=== PATIENT | female | born 1960 | race American Indian/Alaskan Native ===

== ENCOUNTER 2018-04-08 14:00 | Observation (INO) | payer BC ==
[2018-04-08] MEDS ORDERED: Glucagon Recombinant 1 mg Inj IV STA (14:32)
[2018-04-08 14:35] LABS: BASO # 0.1 K/uL (0.0-0.2); BASO % 1.2 % (0.0-2.0); EOS # 0.1 K/uL (0.0-0.7); EOS % 1.4 % (0.0-4.0); HEMOGLOBIN 13.3 g/dL (11.0-16.0); LYMPH # 3.6 K/uL (1.0-4.3); LYMPH % 51.4 % (20.0-40.0); MEAN CELL VOLUME 90.1 fL (81.0-99.0); MEAN CORPUSCULAR HEMOGLOBIN 30.7 pg (27.0-31.0); MEAN CORPUSCULAR HGB CONC 34.1 g/dL (33.0-37.0); MEAN PLATELET VOLUME 7.5 fL (7.2-11.7); MONO # 0.5 K/uL (0.0-0.8); MONO % 7.3 % (0.0-10.0); NEUT # 2.7 K/uL (1.8-7.0); NEUT % 38.7 % (50.0-75.0); RBC 4.33 Mil/uL (3.80-5.20); RED CELL DISTRIBUTION WIDTH 14.8 % (11.5-14.5); WHITE BLOOD COUNT 6.9 K/uL (4.8-10.8)
[2018-04-08 14:44] LABS: PROTHROMBIN TIME 11.4 SECONDS (9.7-12.2)
[2018-04-08 14:52] LABS: ALB/GLOB RATIO 1.2 (1.0-2.1); ALBUMIN 4.4 g/dL (3.5-5.0); GFR AFRICAN-AMERICAN > 60; GFR NON-AFRICAN AMERICAN 57
[2018-04-08 14:59] LABS: AST/SGOT 34 U/L (14-36); BLOOD UREA NITROGEN 10 mg/dL (7-17)
[2018-04-08] MEDS ORDERED: Glucagon Recombinant 1 mg Inj ONE (15:04)
[2018-04-08 15:10] LABS: ALT/SGPT 20 U/L (9-52)
--- NOTE | 2018-04-08 16:41 | C.PDOC ---
History Of Present Illness Pt was eating ribs when a big piece of meat (not bone) "got stuck and would not go down". 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) Current Symptoms Are (Timing): Still Present Context: Food (Ribs) Severity: Moderate Location Of Pain/Discomfort: Other (Lower neck/upper chest area) Quality Of Discomfort: Other (Food stuck) Alleviating Factors: None Additional History Per: Prior Records Past Medical History Reviewed: Historical Data, Nursing Documentation, Vital Signs Vital Signs: Last Vital Signs Temp 98.6 F 04/08/18 14:08 Pulse 76 04/08/18 15:19 Resp 12 04/08/18 15:19 BP 182/100 H 04/08/18 15:19 Pulse Ox 100 04/08/18 15:19 - Medical History PMH: HTN, Hyperlipidemia Family History: States: Unknown Family Hx - Social History Hx Tobacco Use: Yes Hx Alcohol Use: Yes Hx Substance Use: No - Immunization History Hx Tetanus Toxoid Vaccination: No Hx Influenza Vaccination: Yes Hx Pneumococcal Vaccination: No Review Of Systems Except As Marked, All Systems Reviewed And Found Negative. Constitutional: Negative for: Fever, Weakness Respiratory: Negative for: Shortness of Breath Gastrointestinal: Positive for: Other (Not tolerating PO). Negative for: Abdominal Pain Skin: Negative for: Rash Neurological: Negative for: Weakness, Numbness Physical Exam - Physical Exam Appears: Non-toxic, No Acute Distress Skin: Normal Color, Warm, Dry Head: Atraumatic, Normacephalic Eye(s): bilateral: PERRL, EOMI Oral Mucosa: Moist, No Trismus Tongue: Normal Appearing Throat: Normal Neck: Normal ROM, Supple Cardiovascular: Rhythm Regular Respiratory: Normal Breath Sounds, No Accessory Muscle Use, No Stridor, No Wheezing Gastrointestinal/Abdominal: Soft, No Tenderness Extremity: Normal ROM Neurological/Psych: Oriented x3, Normal Speech, Normal Motor, Normal Sensation ED Course And Treatment - Laboratory Results Result Diagrams: 04/08/18 14:31 04/08/18 14:31 Lab Interpretation: No Acute Changes O2 Sat by Pulse Oximetry: 100 Pulse Ox Interpretation: Normal Progress Note: Pt still not tolerating PO after drinking Diet Gingerale and receiving IV Reglan and Glucagon. Reassessment Condition: Unchanged - Physician Consult Information Physician Contacted: Raad Chao Outcome Of Conversation: She sent GI fellow to evaluate pt in the ED. They will take pt up to Endoscopy for further evaluation and treatment. Progress - Interventions Interventions:: Observation - Medications Administered Intravenous: Antiemetic, H-2 ashley, Other (Glucagon) - Data Reviewed Data Reviewed: Lab, Old records - Patient Status Patient status: Unchanged - Continuity of Care Discussed patient case with:: Patient, Family-HIPPA compliant, ED Nurse, On- call PMD-pt unassigned Discussed pt. case with event management consultant/specialty: Gastroenterology - Patient Plan Patient Plan: Other (To Endoscopy) Disposition Discussed With DrEverett: Larry King Comment: He accepted pt on his service. Doctor Will See Patient In The: Hospital - Disposition Disposition: HOSPITALIZED Disposition Time: 16:46 Condition: GUARDED - Clinical Impression Clinical Impression: Esophageal obstruction due to food impaction
[2018-04-08] MEDS ORDERED: Propofol 10 mg/ml Inj (20 ML) ONE (16:55)
--- NOTE | 2018-04-08 16:56 | CP.PCM.CON ---
<RadhaKit - Last Filed: 04/08/18 17:11> History of Present Illness - History of Present Illness History of Present Illness: GI Fellow PGY4, Consult note. Consulted for food bolus. Brittany Rodríguez is a very pleasant 57yrs young AAF with history of TIA on Plavix , HTN, smoking presenting with food bolus impaction. 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 She tried to induce vomiting several times. She is unable to belch. She denies bleeding, chest pain, back pain, abdominal pain. She feel more bloated than usual. She is freely able to breath without difficulty, but unable to swallow her secretions. This is not the first time she has had anything stuck in her throat. Pills and food have been getting caught in her throat for the last two years, progressively worsening. She can drink liquids without problem. She has been able to relieve her symptoms with vomiting and swallowing water in the past. She denies weight loss, fevers, history of cancer. PMHx - see above PSHx - Total Hysterectomy for fibroids/bleeding. EGD ~3 years ago, unknown indication and unknown findings. 1st colonoscopy at 49 and polyps founds , follow up Colonoscopy normal ~2 years ago. FMHx - Denies hx of colon, gastric, esophageal cancer. No history of liver diseases. No fmhx of thyroid issues. SocHx - ~20 pack-yr smoker, occasional etoh. 12pt ROS negative except for above. Past Patient History - Past Social History Smoking Status: Heavy Smoker > 10 Cigarettes Daily - CARDIAC Hx Hypertension: Yes - PSYCHIATRIC Hx Substance Use: No - SURGICAL HISTORY Hx Hysterectomy: Yes - ANESTHESIA Hx Anesthesia: Yes Hx Anesthesia Reactions: No Meds Allergies/Adverse Reactions: Allergies Allergy/AdvReac Type Severity Reaction Status Date / Time No Known Allergies Allergy Verified 04/08/18 14:10 Physical Exam - Constitutional Appears: Non-toxic, No Acute Distress - Head Exam Head Exam: ATRAUMATIC, NORMAL INSPECTION, NORMOCEPHALIC - Eye Exam Eye Exam: EOMI, Normal appearance - ENT Exam ENT Exam: Mucous Membranes Moist Additional comments: Spitting up large amounts of saliva into bag. - Neck Exam Additional comments: Large neck, unable to palpate thyroid due to discomfort. - Respiratory Exam Respiratory Exam: Clear to Auscultation Bilateral, NORMAL BREATHING PATTERN. absent: Wheezes, Stridor - Cardiovascular Exam Cardiovascular Exam: REGULAR RHYTHM, +S1, +S2 - GI/Abdominal Exam GI & Abdominal Exam: Normal Bowel Sounds, Soft. absent: Organomegaly, Tenderness - Extremities Exam Extremities exam: Positive for: normal inspection - Neurological Exam Neurological exam: Alert, CN II-XII Intact, Oriented x3 - Psychiatric Exam Psychiatric exam: Normal Affect, Normal Mood - Skin Skin Exam: Dry, Intact, Normal Color Results - Vital Signs Recent Vital Signs: Last Vital Signs Temp 98.6 F 04/08/18 14:08 Pulse 76 04/08/18 15:19 Resp 12 04/08/18 15:19 BP 182/100 H 04/08/18 15:19 Pulse Ox 100 04/08/18 16:41 - Labs Result Diagrams: 04/08/18 14:31 04/08/18 14:31 Labs: Laboratory Results - last 24 hr 04/08/18 04/08/18 04/08/18 14:31 14:31 14:31 WBC 6.9 RBC 4.33 Hgb 13.3 Hct 39.0 MCV 90.1 MCH 30.7 MCHC 34.1 RDW 14.8 H Plt Count 231 MPV 7.5 Neut % (Auto) 38.7 L Lymph % (Auto) 51.4 H [place] % (Auto) 7.3 Eos % (Auto) 1.4 Baso % (Auto) 1.2 Neut # (Auto) 2.7 Lymph # (Auto) 3.6 [place] # (Auto) 0.5 Eos # (Auto) 0.1 Baso # (Auto) 0.1 PT 11.4 INR 1.0 APTT 34 Sodium 144 Potassium 3.9 Chloride 106 Carbon Dioxide 25 Anion Gap 16 BUN 10 Creatinine 1.0 Est GFR ( Amer) > 60 Est GFR (Non-Af Amer) 57 Random Glucose 117 H Calcium 10.0 Total Bilirubin 0.5 AST 34 ALT 20 Alkaline Phosphatase 114 Total Protein 8.2 Albumin 4.4 Globulin 3.8 Albumin/Globulin Ratio 1.2 Assessment & Plan - Assessment and Plan (Free Text) Assessment: 57F with hx of TIA on plavix, htn presenting with food bolus impaction in the setting of ?progressive dysphagia the last two years. #Food bolus impaction #Progressive dysphagia #HTN #Hx of TIA on Plavix #Nicotine dependence Plan: -Afeb/HDS -Continue supportive care -Emergent EGD with foreign body retrieval. No biopsies as she took Plavix today. -She requires intubation as she is not able to control secretions and high risk for aspiration. -Continue further medical care per primary -Further recommendations pending EGD findings. - Date & Time Date: 04/08/18 Time: 16:58 <Raad Chao - Last Filed: 04/08/18 21:02> Meds - Medications Medications: Current Medications Famotidine (Pepcid) 20 mg PO BID [facility] Results - Vital Signs Recent Vital Signs: Last Vital Signs Temp 97 F L 04/08/18 19:00 Pulse 78 04/08/18 19:00 Resp 13 04/08/18 19:00 BP 149/75 04/08/18 19:00 Pulse Ox 100 04/08/18 20:20 - Labs Result Diagrams: 04/08/18 14:31 04/08/18 14:31 Labs: Laboratory Results - last 24 hr 04/08/18 04/08/18 04/08/18 14:31 14:31 14:31 WBC 6.9 RBC 4.33 Hgb 13.3 Hct 39.0 MCV 90.1 MCH 30.7 MCHC 34.1 RDW 14.8 H Plt Count 231 MPV 7.5 Neut % (Auto) 38.7 L Lymph % (Auto) 51.4 H [place] % (Auto) 7.3 Eos % (Auto) 1.4 Baso % (Auto) 1.2 Neut # (Auto) 2.7 Lymph # (Auto) 3.6 [place] # (Auto) 0.5 Eos # (Auto) 0.1 Baso # (Auto) 0.1 PT 11.4 INR 1.0 APTT 34 Sodium 144 Potassium 3.9 Chloride 106 Carbon Dioxide 25 Anion Gap 16 BUN 10 Creatinine 1.0 Est GFR ( Amer) > 60 Est GFR (Non-Af Amer) 57 Random Glucose 117 H Calcium 10.0 Total Bilirubin 0.5 AST 34 ALT 20 Alkaline Phosphatase 114 Total Protein 8.2 Albumin 4.4 Globulin 3.8 Albumin/Globulin Ratio 1.2 Attending/Attestation - Attestation I have personally seen and examined this patient.: Yes I have fully participated in the care of the patient.: Yes I have reviewed all pertinent clinical information: Yes Notes (Text): 04/08/18 20:59 This is a 57 yr old F with hx of TIA on plavix, htn presenting with food bolus impaction in the setting of ?progressive dysphagia the last two years s/p emergent EGD found to have meat impaction in distal esophagus without stricture removed by endoscopy. Biopsies not taken as patient has been on anti platelet. Can start regular diet and PPI po daily. Needs outpatient repeat EGD for biospy to rule out eosinophilic esophagitis after holding plavix for 5 days. Thank you for letting us participate in the care of your patient
[2018-04-08] MEDS ORDERED: Succinylcholine Chloride 20 mg/ml Syr (5 ml) IV ONE (17:11)
[2018-04-08] MEDS ORDERED: Midazolam 2 MG/2 ML VIAL ONE (17:19)
--- NOTE | 2018-04-08 20:23 | CP.PCM.HP ---
Past Patient History - Past Social History Smoking Status: Heavy Smoker > 10 Cigarettes Daily - CARDIAC Hx Hypertension: Yes - PSYCHIATRIC Hx Substance Use: No - SURGICAL HISTORY Hx Hysterectomy: Yes - ANESTHESIA Hx Anesthesia: Yes Hx Anesthesia Reactions: No Meds Allergies/Adverse Reactions: Allergies Allergy/AdvReac Type Severity Reaction Status Date / Time No Known Allergies Allergy Verified 04/08/18 14:10 Results - Vital Signs Recent Vital Signs: Last Vital Signs Temp 97 F L 04/08/18 19:00 Pulse 78 04/08/18 19:00 Resp 13 04/08/18 19:00 BP 149/75 04/08/18 19:00 Pulse Ox 100 04/08/18 19:00 - Labs Result Diagrams: 04/08/18 14:31 04/08/18 14:31 Labs: Laboratory Results - last 24 hr 04/08/18 04/08/18 04/08/18 14:31 14:31 14:31 WBC 6.9 RBC 4.33 Hgb 13.3 Hct 39.0 MCV 90.1 MCH 30.7 MCHC 34.1 RDW 14.8 H Plt Count 231 MPV 7.5 Neut % (Auto) 38.7 L Lymph % (Auto) 51.4 H [place] % (Auto) 7.3 Eos % (Auto) 1.4 Baso % (Auto) 1.2 Neut # (Auto) 2.7 Lymph # (Auto) 3.6 [place] # (Auto) 0.5 Eos # (Auto) 0.1 Baso # (Auto) 0.1 PT 11.4 INR 1.0 APTT 34 Sodium 144 Potassium 3.9 Chloride 106 Carbon Dioxide 25 Anion Gap 16 BUN 10 Creatinine 1.0 Est GFR ( Amer) > 60 Est GFR (Non-Af Amer) 57 Random Glucose 117 H Calcium 10.0 Total Bilirubin 0.5 AST 34 ALT 20 Alkaline Phosphatase 114 Total Protein 8.2 Albumin 4.4 Globulin 3.8 Albumin/Globulin Ratio 1.2
[2018-04-08 23:47] VITALS: RESP 20
[2018-04-09 08:12] VITALS: BP 164/95; PULSE 74; TEMP 98.7; O2SAT 96
[2018-04-09] MEDS ORDERED: Pneumococcal 23-Valent Vaccine IM ONE (10:00)
--- NOTE | 2018-04-09 13:50 | CP.PCM.PN ---
Subjective - Date & Time of Evaluation Date of Evaluation: 04/09/18 Time of Evaluation: 13:50 - Subjective Subjective: PATIENT WAS ADMITTED FOR FOOD BOLUS IMPACTION NAOMY CHEST PAIN / SOB OR NAUSEA OR VOMITING NO SIGN OF DISTRESS NOTED Objective - Vital Signs/Intake and Output Vital Signs (last 24 hours): Temp Pulse Resp BP Pulse Ox 98.7 F 74 20 164/95 H 96 04/09/18 08:11 04/09/18 08:11 04/09/18 08:11 04/09/18 08:11 04/09/18 08:11 - Medications Medications: Current Medications Famotidine (Pepcid) 20 mg PO BID [facility] Last Admin: 04/09/18 09:15 Dose: 20 mg Heparin Sodium (Porcine) (Heparin) 5,000 units SC Q12 [facility] Last Admin: 04/09/18 09:15 Dose: 5,000 units - Labs Labs: 04/08/18 14:31 04/08/18 14:31 PT 11.4 SECONDS (9.7-12.2) 04/08/18 14:31 INR 1.0 04/08/18 14:31 APTT 34 SECONDS (21-34) 04/08/18 14:31 Assessment and Plan - Assessment and Plan (Free Text) Assessment: PATIENT SEEN AND EXAMNIED AT THE BEDSIDE LUNG SOUND CLEAR [place] DIET ADV PATIENT TOLERATED DISCUSS WITH DR SILVA WHO CLEAR FOR DC FOLLOW UP WITH DR Earl SILVA IN 1-2 WEEK AT HIS OFFICE ---CALL FOR APPOINTMENT CONTINUE HOME MEDICATION ACTIVITY TOLERATED CALL DR SILVA OR GO TO THE EMERGENCY ROOM IF SYMPTOMS RETURN OR WORSENING DISCUSS WITH PATIENT WHO AGREE AND VERBALIZED UNDERSTANDING
--- NOTE | 2018-04-09 14:51 | CP.PCM.PN ---
Subjective - Date & Time of Evaluation Date of Evaluation: 04/09/18 Time of Evaluation: 07:45 - Subjective Subjective: clinically same Objective - Vital Signs/Intake and Output Vital Signs (last 24 hours): Temp Pulse Resp BP Pulse Ox 98.7 F 74 20 164/95 H 96 04/09/18 08:11 04/09/18 08:11 04/09/18 08:11 04/09/18 08:11 04/09/18 08:11 - Medications Medications: Current Medications Famotidine (Pepcid) 20 mg PO BID [facility] Last Admin: 04/09/18 09:15 Dose: 20 mg Heparin Sodium (Porcine) (Heparin) 5,000 units SC Q12 [facility] Last Admin: 04/09/18 09:15 Dose: 5,000 units - Labs Labs: 04/08/18 14:31 04/08/18 14:31 PT 11.4 SECONDS (9.7-12.2) 04/08/18 14:31 INR 1.0 04/08/18 14:31 APTT 34 SECONDS (21-34) 04/08/18 14:31 - Constitutional Appears: Well - Head Exam Head Exam: ATRAUMATIC, NORMAL INSPECTION, NORMOCEPHALIC - Eye Exam Eye Exam: EOMI, Normal appearance, PERRL Pupil Exam: NORMAL ACCOMODATION, PERRL - ENT Exam ENT Exam: Mucous Membranes Moist, Normal Exam - Neck Exam Neck Exam: Full ROM, Normal Inspection. absent: Lymphadenopathy - Respiratory Exam Respiratory Exam: Decreased Breath Sounds - Cardiovascular Exam Cardiovascular Exam: REGULAR RHYTHM, +S1, +S2 - GI/Abdominal Exam GI & Abdominal Exam: Soft, Diminished Bowel Sounds - Rectal Exam Rectal Exam: Deferred
== END 2018-04-09 14:57 | disposition home or self-care (01) ==
LOC: C.ER 14:00 → C.9E 16:36 → C.3T 19:53
PROVIDERS: ADMIT Internal Medicine Nephrology; ATTEND Internal Medicine Nephrology
DX: T18.128A Food in esophagus causing other injury, initial encounter (principal); I10 Essential (primary) hypertension; E78.5 Hyperlipidemia, unspecified; F17.200 Nicotine dependence, unspecified, uncomplicated; Z86.73 Personal history of transient ischemic attack (TIA), and cerebral infarction without residual deficits; Z90.710 Acquired absence of both cervix and uterus
CPT/HCPCS: 80053; 85025; 85610; 85730; 96372; 96374; 96375; 99285; G0378; J1610; J1644; J2765

== ENCOUNTER 2018-08-06 11:56 | Emergency (ER) | payer BC ==
[2018-08-06 12:09] VITALS: BP 135/88; PULSE 88; RESP 18; TEMP 99.1; O2SAT 99
[2018-08-06] MEDS ORDERED: Albuterol 0.083% Inhal Sol (2.5 mg/3 mL) UD IH STA (13:10)
[2018-08-06] MEDS ORDERED: Albuterol 0.083% Inhal Sol (2.5 mg/3 mL) UD ONE (13:16)
--- NOTE | 2018-08-06 13:18 | C.PDOC ---
History Of Present Illness 58 y/o female, with history of hypertension, comes in for evaluation of cold symptoms for the past 2 days, associated with nasal congestion, runny nose, productive cough with clear sputum, body aches, and low grade fever. Otherwise patient denies high fever, chills, severe headache, drooling, chest pain, wheezing, dyspnea, abdominal pain, vomiting, diarrhea, UTI sx. Ambulate to ED for evaluation, not in any apparent distress. Time Seen by Provider: 08/06/18 13:02 Chief Complaint (Nursing): Cough, Cold, Congestion History Per: Patient History/Exam Limitations: no limitations Onset/Duration Of Symptoms: Days Current Symptoms Are (Timing): Still Present Past Medical History Reviewed: Historical Data, Nursing Documentation, Vital Signs Vital Signs: Last Vital Signs Temp 99.1 F 08/06/18 12:07 Pulse 88 08/06/18 12:07 Resp 18 08/06/18 12:07 BP 135/88 08/06/18 12:07 Pulse Ox 99 08/06/18 12:07 - Medical History PMH: HTN, Hyperlipidemia Family History: States: No Known Family Hx - Social History Hx Tobacco Use: Yes Hx Alcohol Use: Yes Hx Substance Use: No - Immunization History Hx Tetanus Toxoid Vaccination: No Hx Influenza Vaccination: Yes Hx Pneumococcal Vaccination: No Review Of Systems Except As Marked, All Systems Reviewed And Found Negative. Constitutional: Positive for: Fever ENT: Positive for: Nose Congestion, Other (Runny nose) Cardiovascular: Negative for: Chest Pain Respiratory: Positive for: Cough (productive with clear sputum). Negative for: Wheezing Gastrointestinal: Negative for: Vomiting, Abdominal Pain, Diarrhea Musculoskeletal: Positive for: Other (body aches) Neurological: Negative for: Headache Physical Exam - Physical Exam Appears: Well, Non-toxic, No Acute Distress Skin: Normal Color, Warm, No Rash Head: No Normacephalic Eye(s): bilateral: PERRL, EOMI (no pain or limitation on extraocular movement), left: Other (Conjunctival injection, no periorbital edema or erythema) Ear(s): Bilateral: Normal Nose: No Flaring, No Discharge Oral Mucosa: Moist, No Drooling Throat: No Erythema, No Drooling Neck: Trachea Midline, Supple Chest: Symmetrical, No Deformity, No Tenderness Cardiovascular: Rhythm Regular, No Murmur, No JVD Respiratory: No Decreased Breath Sounds, No Accessory Muscle Use, No Rales, No Stridor, No Wheezing Gastrointestinal/Abdominal: Soft, No Tenderness, No Distention, No Guarding Back: No CVA Tenderness Extremity: Normal ROM, No Pedal Edema, No Deformity, No Swelling Extremity: Bilateral: Atraumatic, Normal Color And Temperature, Normal ROM Neurological/Psych: Oriented x3, Normal Speech, Normal Motor, Normal Sensation, Normal Reflexes ED Course And Treatment O2 Sat by Pulse Oximetry: 99 (RA) Pulse Ox Interpretation: Normal - Radiology CXR: Interpreted by Me, Viewed By Me CXR Interpretation: Yes: No Acute Disease Progress Note: Chest x-ray ordered. Albuterol, ultram, and zofran administered. On re-eval, pt is afebrile, hemodynamicaly stable. PulsEOx 99% RA. ENT: no acute findings. neck: Supple, (-) JVD, (-) carotid bruits B/L. Lungs: CTA B/L, BS equal B/L. CVS: (+)S1S2, reg, (-) murmur. Abd: benign, (-) guarding, (-) rebound. Back: (-) CVA tenderness. Neurologicaly intact. CXR- normal study. Influenza (-). Pt has clinical findings c/w viral illness. Left eye conjuncivitis. Pt advised. ref. to f/u with PMD in 2-3 days for re-eval. return to ED if any worsening or new changes. Disposition Counseled Patient/Family Regarding: Studies Performed, Diagnosis, Need For Followup, Rx Given - Disposition Referrals: Heather Restrepo MD [Non-Staff] - Disposition: HOME/ ROUTINE Disposition Time: 13:43 Condition: STABLE Additional Instructions: Encourage fluids Take medication as prescribed Follow up with PMD in 2-3 days for re-evaluation. return to ED if any worsening or new changes. Prescriptions: Albuterol HFA [Ventolin HFA 90 mcg/actuation (8 g)] 1 puff IH Q6 #1 inhaler Benzonatate [Tessalon Perle] 100 mg PO TID #14 capsule Neomycin/Polymyxin/Dexamethaso [Dexamethasone/Neomycin/Polymyxin 5 Ml] 2 drop LEFTEYE Q6 #1 bottle Oseltamivir Phosphate [Tamiflu] 75 mg PO BID #10 capsule Instructions: Viral Upper Respiratory Infection, Adult (DC), Conjunctivitis ([place]) (DC) Forms: [facility] (Danish), Work Excuse - Clinical Impression Clinical Impression: Influenza-like illness, Conjunctivitis - PA / ASSIGNMENT DESK EDITOR / Resident Statement MD/DO has reviewed & agrees with the documentation as recorded. - Scribe Statement The provider has reviewed the documentation as recorded by the Scribe Mandi Allison All medical record entries made by the Cynthiaibcarolyn were at my direction and personally dictated by me. I have reviewed the chart and agree that the record accurately reflects my personal performance of the history, physical exam, medical decision making, and the department course for this patient. I have also personally directed, reviewed, and agree with the discharge instructions and disposition.
--- NOTE | 2018-08-06 15:32 | RAD ---
Chest x-ray two views HISTORY: Cough. Comparison: None available. Findings: Mild venous congestion Tortuous ectatic aorta. Mild cardiomegaly. Degenerative changes in the spine. Residual contrast within bowel. Impression: Mild venous congestion Tortuous ectatic aorta. Mild cardiomegaly. Degenerative changes in the spine. Residual contrast within bowel.
== END 2018-08-06 13:59 | disposition home or self-care (01) ==
LOC: C.ER 11:56
DX: J11.1 Influenza due to unidentified influenza virus with other respiratory manifestations (principal); H10.9 Unspecified conjunctivitis

== ENCOUNTER 2018-10-10 10:03 | Outpatient (CLI) | payer BC | END 2018-10-10 10:04 | disposition home or self-care (01) | LOC: C.CTH 10:03 ==

== ENCOUNTER 2018-11-07 11:22 | Outpatient (CLI) | payer BC | END 2018-11-07 11:23 | disposition home or self-care (01) | LOC: C.USIC 11:22 ==

== ENCOUNTER 2019-01-18 09:16 | Outpatient (CLI) | payer BC | END 2019-01-18 09:17 | disposition home or self-care (01) | LOC: C.LAB 09:16 ==

== ENCOUNTER 2019-01-30 11:25 | Outpatient (CLI) | payer BC | END 2019-01-30 11:26 | disposition home or self-care (01) | LOC: C.LAB 11:25 ==

== ENCOUNTER 2019-02-09 13:12 | Outpatient (CLI) | payer BC | END 2019-02-09 13:13 | disposition home or self-care (01) | LOC: C.MRIC 13:12 ==